=== PATIENT | female | born 1935 | race Caucasian/White ===

== ENCOUNTER 2019-11-01 18:52 | Emergency (ER) | payer MEDICARE, SELFPAY ==
[2019-11-01 18:55] VITALS: BP 164/79; PULSE 87; RESP 18; O2SAT 93; BMI 23.3
--- NOTE | 2019-11-01 18:58 | XR_ITS ---
WS: [id number] XR chest 1V portable [id number] REASON FOR EXAM: cough FINDINGS: Comparisons were made to September 13, 2018. Today's exam shows improvement of the enlarged ri ght hilum which is now normal apices are also normal. The heart mediastinum are normal arteriosclerotic changes in the arch are seen. The lung gold show some chronic changes but no active pneumonia, pleural effusion, pulmonary edema. 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 No acute findings.
--- NOTE | 2019-11-01 18:59 | ECG_ITS ---
Measurements Intervals [place] Rate: 76 P: 49 [place]: 161 QRS: -17 QRSD: 99 T: 161 QT: 373 QTc: [address] DEVIATION AND MODERATE T-WAVE ABNORMALITY, CONSIDER INFERIOR ISCHEMIA [-0.1+ mV T W mV T WAVE IN II/aVF] WARNING: DATA QUALITY MAY AFFECT INTERPRETATION Compared to ECG 09/13/2018 23:09:38 Possible ischemia now present Left-axis deviation no longer present T-wave abnormality still present Electronically Signed On 11-02-2019 14:12:34 TRAP OPERATOR by Aman Foster M.D. [id number]
--- NOTE | 2019-11-01 19:00 | ED_ITS ---
Entered by Thalia Ogden, acting as scribe for Roxi Hurd HPI - SOB/Dyspnea General: Chief Complaint: Shortness of Breath/Dyspnea Stated Complaint: RESPIRATORY DISTRESS Time Seen by Provider: 11/01/19 18:56 Source: EMS Mode of arrival: EMS Limitations: altered mental status (baseline, pt is nonverbal) History of Present Illness: HPI Narrative: per ems they was called to the senior living due to increased shortness of breath. per ems when they arrived the pt was not short of breath. pt is nonverbal but they stated thays her baseline. MD elicited complaint: shortness of breath Onset (ago): day(s) Timing: progressively worsening (per senior living) Severity: mild Relieving factors: nothing Treatment prior to arrival: none (per ems pt is not short of breath) Related Data: Home oxygen amount: none Review of Systems General: Reports: ROS unobtainable due to medical condition PFSH ED PFSH: Social History Smoking and tobacco status: unknown if ever smoked Physical Exam Const: COMMON NORMALS: no apparent distress, oriented x3, no limitations, healthy appearing, alert and well nourished EXAM LIMITATIONS: no altered mental status GENERAL APPEARANCE: cooperative, well kempt and well developed ORIENTATION/CONSCIOUSNESS: Yes awake and Yes oriented to person HENMT: COMMON NORMALS: normocephalic, head/scalp atraumatic, hearing grossly normal bilaterally, external ears normal, EAC's normal, external nose normal and moist oral mucous membranes HEAD & SCALP: normal to inspection, normocephalic and atraumatic FACE & SINUS: normal facial exam and face symmetric NOSE: external nose normal and nares normal EXTERNAL EAR: Yes external ears normal EXTERNAL AUDITORY CANAL: EAC's normal MOUTH: oral and palatal mucosa normal and tongue normal Eye: COMMON NORMALS: PERRL, EOMs intact bilaterally, conjunctivae normal and no scleral icterus GENERAL EYE: normal appearance of both eyes and normal light reflex CONJUNCTIVA: Yes conjunctivae normal SCLERA: sclerae normal CORNEA: Yes corneas normal PUPIL: Yes PERRL DIRECT OPHTHALMOSCOPY: Yes normal light reflex Neck/C-Spine: COMMON NORMALS: full ROM, no lymphadenopathy, supple, no meningeal signs and no JVD GENERAL: Yes normal visual inspection and Yes trachea midline CERVICAL SPINE: Yes cervical ROM normal Chest: COMMONS NORMALS: inspection of chest normal and palpation of chest normal Resp: COMMON NORMALS: normal respiratory effort, no retractions, no use of accessory muscles and clear to auscultation bilaterally EFFORT & INSPECTION: Yes able to speak in complete sentences AUSCULTATION: clear to auscultation bilaterally Cardio: COMMON NORMALS: no JVD, regular rate, regular rhythm, S1 normal heart sound, S2 normal heart sound, no gallops, no clicks, no murmurs and no rub JUGULAR VENOUS DISTENTION: no JVD RATE: regular rate RHYTHM: regular rhythm HEART SOUNDS: S1 normal and S2 normal GI: COMMON NORMALS: soft to palpation, non-tender, no hepatosplenomegaly and no masses INSPECTION: Yes normal to inspection PALPATION: Yes soft and Yes no hepatosplenomegaly : COMMON NORMALS: Yes no CVA tenderness BLADDER/KIDNEY EXAM: Yes no CVA tenderness Back/Pelvis: COMMON NORMALS: no CVA tenderness, thoracic and lumbar spine normal to inspection, no thoracic nor lumbar tenderness and thoraco-lumbar ROM normal Extremity: COMMON NORMALS: normal to inspection, full ROM, normal capillary refill, no joint enlargement, no clubbing, cyanosis or edema and no calf tenderness Neuro: COMMON NORMALS: oriented x3, moves all extremities, no focal motor deficits and no sensory deficits noted SENSORIUM/ORIENTATION: Yes alert and Yes oriented to person MENINGEAL SIGNS: Yes no meningeal signs Psych: COMMON NORMALS: mental status grossly normal, thought process normal, c ooperative, affect normal, speech normal and activity/motor behavior normal APPEARANCE: Yes well kempt SPEECH: Yes normal speech THOUGHT PROCESS: normal thought process Skin: COMMON NORMALS: no rashes or lesions noted, skin turgor normal, no jaundice, no petechiae and no mottling GENERAL SKIN EXAM: no rashes or lesions noted and turgor normal Course Vital Signs: Vital signs: Vital Signs Pulse Rate 72 11/01/19 23:22 Respiratory Rate 18 11/01/19 23:22 Blood Pressure 126/50 11/01/19 23:22 Pulse Oximetry 94 11/01/19 23:22 MDM - SOB/Dyspnea MDM Narrative: Medical decision making narrative: Nevin is brought in by EMS after her home health nurse was concerned that she may have respiratory difficulty. They were triaged out as respiratory distress but they do not observe any respiratory findings and nor do I. Now that family is here the patient will occasionally make a gurgling type noise that they are concerned she is having trouble clearing secretions. I see no evidence of acute pneumonia, respiratory distress, acute cardiac syndrome or otherwise. They feel more reassured at this time would like to take her home. It sounds as though it will be quite some time before they can get a car here to take her home. I will go ahead and get her second EKG and troponin just to be certain that this is not some atypical acute coronary syndrome. The patient of course is nonverbal and cannot express anything to us. Family is requesting that she be treated for bronchitis at home. I will start her on doxycycline and they have a nebulizer machine that they can use there. They do understand that her disposition will change of her EKG her second troponin is abnormal. But at this time they are satisfied and want to be discharged. Discharge -I reviewed the EKG findings and the patient's troponin with family. Despite my informing them that this could be her heart they want to be discharged. The patient's power of sports attorney Heron Palmer states that he she would not want anything aggressive like this. They understand the problems but now the patient is coughing more forcefully and they are confident that this is just her having bronchitis. Nonetheless they have been warned but they have been welcomed to return. Lab Data: Attestation: I reviewed the patient's lab results. Labs: Lab Results 11/01/19 11/01/19 11/01/19 Range/Units 19:14 19:14 19:14 WBC 6.1 (4.0-10.0) 10^3/ uL RBC 4.42 (4.1-5.3) 10^6/u L Hgb 13.6 (11.5-15.3) g/dL Hct 39.9 (37.0-47.0) % MCV 90.3 (81-99) fL MCH 30.8 (28.0-34.0) pg MCHC 34.1 (30.0-36.0) g/dL RDW 13.6 (12.1-15.1) % Plt Count 178 (130-400) 10^3/c mm MPV 10.9 H (7.4-10.4) fL Neut % (Auto) 60.1 % Lymph % (Auto) 28.7 % [place] % (Auto) 7.9 % Eos % (Auto) 2.8 % Baso % (Auto) 0.3 % Neut # (Auto) 3.7 (1.8-7.7) 10^3/u L Lymph # (Auto) 1.8 (0.8-4.8) 10^3/u L [place] # (Auto) 0.5 (0.2-0.9) 10^3/u L Eos # (Auto) 0.2 (0.0-0.8) 10^3/u L Baso # (Auto) 0.0 (0.0-0.1) 10^3/u L Nucleated RBC % (a uto) 0 % Nucleated RBCs # 0.0 /100WBC PT 13.60 H (10.5-13.3) SECO NDS INR 1.00 (0.8-1.2) Sodium 142 (136-145) mmol/L Potassium 3.6 (3.5-5.1) mmol/L Chloride 103 (98-107) mmol/L Carbon Dioxide 25 (22-29) mmol/L Anion Gap 17.6 (5-19) BUN 25 H (8-23) mg/dL Creatinine 0.5 (0.5-0.9) mg/dL Glucose 143 H (65-115) mg/dL Calcium 9.9 (8.5-10.5) mg/dL Total Bilirubin 0.6 (0.15-1.2) mg/dL AST 16 (0-32) U/L ALT 13 (0-33) U/L Alkaline Phosphata se 47 (35-105) IU/L Troponin T Baselin e (0-10) ng/mL Troponin T 120 Min [place] (0-10) ng/mL Delta Troponin T (0-10) ABS# NT-Pro-B Natriuret Pep 52 (0-450) pg/mL Total Protein 6.9 (6.6-8.7) g/dL Albumin 3.7 (3.5-5.2) g/dL Globulin 3.2 (1.3-4.6) g/dL Influenza Type A A g (Negative) POC Influenza B Ag (Negative) 11/01/19 11/01/19 11/01/19 Range/Units 19:14 19:26 21:05 WBC (4.0-10.0) 10^3/ uL RBC (4.1-5.3) 10^6/u L Hgb (11.5-15.3) g/dL Hct (37.0-47.0) % MCV (81-99) fL MCH (28.0-34.0) pg MCHC (30.0-36.0) g/dL RDW (12.1-15.1) % Plt Count (130-400) 10^3/c mm MPV (7.4-10.4) fL Neut % (Auto) % Lymph % (Auto) % [place] % (Auto) % Eos % (Auto) % Baso % (Auto) % Neut # (Auto) (1.8-7.7) 10^3/u L Lymph # (Auto) (0.8-4.8) 10^3/u L [place] # (Auto) (0.2-0.9) 10^3/u L Eos # (Auto) (0.0-0.8) 10^3/u L Baso # (Auto) (0.0-0.1) 10^3/u L Nucleated RBC % (a uto) % Nucleated RBCs # /100WBC PT (10.5-13.3) SECO NDS INR (0.8-1.2) Sodium (136-145) mmol/L Potassium (3.5-5.1) mmol/L Chloride (98-107) mmol/L Carbon Dioxide (22-29) mmol/L Anion Gap (5-19) BUN (8-23) mg/dL Creatinine (0.5-0.9) mg/dL Glucose (65-115) mg/dL Calcium (8.5-10.5) mg/dL Total Bilirubin (0.15-1.2) mg/dL AST (0-32) U/L ALT (0-33) U/L Alkaline Phosphata se (35-105) IU/L Troponin T Baselin e 23 H (0-10) ng/mL Troponin T 120 Min [place] 23.93 H (0-10) ng/mL Delta Troponin T 0.93 (0-10) ABS# NT-Pro-B Natriuret Pep (0-450) pg/mL Total Protein (6.6-8.7) g/dL Albumin (3.5-5.2) g/dL Globulin (1.3-4.6) g/dL Influenza Type A A g Negative (Negative) POC Influenza B Ag Negative (Negative) Imaging Data^: CXR: Attestation: I personally reviewed and interpreted this imaging study as follows: My impression: No acute cardiopulmonary findings. Unchanged from previous. EKG Data^: EKG 1: Attestation: I personally reviewed and interpreted this EKG as follows: EKG Interpretation Date: 11/01/19 EKG 2: Attestation: I personally reviewed and interpreted this EKG as follows: EKG Interpretation Date: 11/01/19 EKG interpretation time: 21:40 Interpretation: Normal sinus rhythm at 76 beats a minute, nonspecific ST-T wave changes along with mild T wave inversions V2 through V6, similar to previous. Discharge Plan Discharge Patient Disposition: Home, Self-Care Clinical Impression: Bronchitis Condition: Stable Prescriptions: New doxycycline hyclate 100 mg capsule 100 mg PO BID 10 Days Qty: 20 RF: 0 [place] 5-325 mg tablet 1 tab PO Q6H PRN (Reason: pain) 5 Days Qty: 20 RF: 0 No Action levothyroxine 50 mcg Tablet 50 mcg PO DAILY RF: 0 losartan 50 mg Tablet 50 mg PO DAILY RF: 0 donepezil 10 mg Tablet 10 mg PO DAILY RF: 0 vitamin E 600 unit Capsule 670 unit PO DAILY RF: 0 tramadol 50 mg Tablet 50 mg PO BID PRN (Reason: Pain) RF: 0 Calcium 600 600 mg calcium (1,500 mg) Tablet 600 mg PO DAILY RF: 0 Fiber-Tabs 625 mg Tablet 625 mg PO TID RF: 0 budesonide 0.25 mg/2 mL Suspension For Nebulization 0.25 mg INHALATION BID RF: 0 diclofenac sodium 50 mg Tablet,Delayed Release (Dr/Ec) 50 mg PO BID RF: 0 memantine 10 mg Tablet 10 mg PO BID RF: 0 albuterol sulfate 0.083 RF: 0 Discharge Orders: Discharge Order (Routine); Ordered 11/01/19 Ordered By: Roxi Hurd Referrals: Duarte Davila MD [Family Provider] - 1-3 days Discharge Diet: Advance as tolerated Discharge Activity: Increase activity as tolerated Patient Instructions: Acute Bronchitis (ED) Activity Restrictions/Additional Instructions: Please return to the ER immediately for any of the signs or symptoms listed on your discharge instruction sheets, worsening/changing of your symptoms, you are not getting better as quickly as expected, or for ANY other cause or concerns. I have offered you admission for further cardiac evaluation but you have declined, of course any heart problem can be life-threatening. If you change your mind and want further evaluation of your heart you are free to return at any time for recheck. Do not take tramadol and [place] together. Discharge Date/Time: 11/01/19 23:22 Coding Level of Care Code ED Shoe Designer for Chg Fwartemio The documentation recorded by the Alin enciso Bridget Annette, accurately reflects the service I personally performed and the decisions made by , Roxi Hurd Nov 01, 2019 18:52
[2019-11-01 19:23] LABS: Basophils % 0.3 %; Eosinophils # 0.2 10^3/uL (0.0-0.8); Eosinophils % 2.8 %; Hematocrit 39.9 % (37.0-47.0); Hemoglobin 13.6 g/dL (11.5-15.3); Lymphocytes # 1.8 10^3/uL (0.8-4.8); Lymphocytes % 28.7 %; Mean Corpuscular HGB Conc 34.1 g/dL (30.0-36.0); Mean Corpuscular Hemoglobin 30.8 pg (28.0-34.0); Mean Corpuscular Volume 90.3 fL (81-99); Mean Platelet Volume 10.9 fL (7.4-10.4); Monocytes # 0.5 10^3/uL (0.2-0.9); Monocytes % 7.9 %; Neutrophils # 3.7 10^3/uL (1.8-7.7); Neutrophils % 60.1 %; Nucleated Red Blood Cells % 0 %; Platelet Count 178 10^3/cmm (130-400); Red Blood Count 4.42 10^6/uL (4.1-5.3); Red Cell Distribution Width 13.6 % (12.1-15.1); White Blood Count 6.1 10^3/uL (4.0-10.0)
[2019-11-01 19:38] LABS: Troponin(5th) Baseline 23 ng/mL (0-10)
[2019-11-01 19:48] LABS: Alanine Aminotransferase 13 U/L (0-33); Albumin Level 3.7 g/dL (3.5-5.2); Alkaline Phosphatase 47 IU/L (35-105); Anion Gap 17.6 (5-19); Aspartate Amino Transferase 16 U/L (0-32); Blood Urea Nitrogen 25 mg/dL (8-23); Calcium 9.9 mg/dL (8.5-10.5); Carbon Dioxide 25 mmol/L (22-29); Chloride 103 mmol/L (98-107); Globulin 3.2 g/dL (1.3-4.6); Glucose 143 mg/dL (65-115); NT Pro B Type Natriuretic Pept 52 pg/mL (0-450); Potassium 3.6 mmol/L (3.5-5.1); Sodium 142 mmol/L (136-145); Total Bilirubin 0.6 mg/dL (0.15-1.2); Total Protein 6.9 g/dL (6.6-8.7)
[2019-11-01 20:15] LABS: Influenza A by IFA Negative (Negative); Influenza B by IFA Negative (Negative)
[2019-11-01 20:21] VITALS: BP 138/63; PULSE 70; RESP 18; O2SAT 96
--- NOTE | 2019-11-01 20:59 | ECG_ITS ---
Measurements Intervals [place] Rate: 72 P: 28 [place]: 170 QRS: -15 QRSD: 95 T: -81 QT: 356 QTc: 390 SINUS RHYTHM POSSIBLE SEPTAL MYOCARDIAL INFARCTION , PROBABLY OLD [30 ms Q WAVE IN V1/V2] Compared to ECG 09/13/2018 23:09:38 Myocardial infarct finding now present Left-axis deviation no longer present T-wave abnormality no longer present Electronically Signed On 11-02-2019 14:14:21 PULP MAKING PLANT OPERATOR by Aman Foster M.D. [id number]
[2019-11-01] MEDS: cefTRIAXone 1,000 MG in sodium chloride 0.9% (plus) 50 ML 100 MG IV (21:14)
[2019-11-01] MEDS: doxycycline 100 mg Tablet 200 MG PO (21:16)
[2019-11-01 21:18] VITALS: BP 139/78; PULSE 78; RESP 18; O2SAT 94
[2019-11-01 21:29] LABS: Troponin 5 2HR 23.93 ng/mL (0-10); Troponin 5 2HR Delta 0.93 ABS# (0-10)
[2019-11-01 23:22] VITALS: BP 126/50; PULSE 72; RESP 18; O2SAT 94
[2019-11-02 13:47] LABS: ABG PCO2 40.8 mmHg (35-45); ABG PH Result 7.42 (7.35-7.45); Arterial Blood Gas Hematocrit 43.9 % (37-47); Blood Gas Allen Test Pos; Blood Gas Sample Site Brachial, left; Blood Gas Sample Type Arterial; HCO3 ABG 26.6 mmol/L (22-26); Oxygen Device NC; PO2 ABG 73.4 mmHg (80.0-100.0)
== END 2019-11-01 23:22 | disposition home or self-care (01) ==
PROVIDERS: Emergency Provider Emergency Medicine; Family Provider Family Medicine
DX: J40 Bronchitis, not specified as acute or chronic (principal)
CPT/HCPCS: 36600; 71045; 80053; 82803; 83880; 84484; 85025; 85610; 87804; 93005; 96365; 99283; 99284; J0696